=== PATIENT | male | born 1980 | race Caucasian/White ===

== ENCOUNTER 2019-07-08 09:50 | Emergency (ER) | payer SELFPAY ==
[~2019-07-08] VITALS: Ht 180.3 cm; Wt 90.7 kg
[2019-07-08 12:10] VITALS: BP 115/75
== END 2019-07-08 12:51 | disposition home or self-care (01) ==
LOC: ER 09:50
DX: K40.90 Unilateral inguinal hernia, without obstruction or gangrene, not specified as recurrent (principal); K44.9 Diaphragmatic hernia without obstruction or gangrene; I10 Essential (primary) hypertension
CPT/HCPCS: 74176